=== PATIENT | male | born 1985 | race Hispanic/Latino ===

== ENCOUNTER 2017-10-09 11:04 | Emergency (ER) | payer SELFPAY ==
[2017-10-09 11:06] VITALS: BP 121/69; PULSE 87; RESP 17; TEMP 37.1; O2SAT 98; BMI 24.7
--- NOTE | 2017-10-09 11:13 | ED.VISSUMM ---
- ER Visit Summary Date of Service: 10/09/17 Chief Complaint: Back pain History of Present Illness: The patient is a 32 M who goes to the [facility]. He reports that he has low back pain that began yesterday. Says sharp pain that is 10 out of 10 at worst and 8 out of 10 currently. Is worsened by movement. Son relieved by Tylenol. No radiation to his legs. No numbness or weakness in his legs. No problems with his bowels or his bladder. No groin numbness. He denies any recent trauma. No fall, MVA, or change in activity. Patient reports that he had a subjective fever and went to the urgent care this morning and had a urinalysis and was sent here. He is unsure what the urinalysis showed. He has never had kidney stones. He denies any dysuria or hematuria. Physical Examination: Vitals: Stable. Afebrile. General: A&O x 3. NAD. Cardiovascular exam: Regular rate and rhythm, no murmur, rub or gallop. Respiratory exam: Clear to auscultation bilaterally. No wheezes or stridor. Abdominal exam: Soft, nontender, nondistended, normal bowel sounds. No peritoneal signs. Back: Diffuse moderate tenderness to palpation over the lumbar spine and the paraspinous musculature in the lumbar region. No point tenderness. Negative straight leg bilaterally. 5/5 DF, PF, EHL bilaterally. Normal sensation to light touch throughout. Extremity: No clubbing, cyanosis, or edema. Test Results: UA was negative. Emergency Department Course and Treatment: An OARRS report was obtained which was negative. He was given a shot of Toradol IM and is resting comfortably. Treatment Plan: Patient will be discharged with Correll and naproxen. Instructed to follow-up the [facility] in 3-5 days if not improving. Return to the emergency department for any worsening symptoms. Disposition: To home in improved and stable condition. Impression: 1. Low back pain, acute. This note was generated with [employer] dictation software. It may contain incorrect words, spelling, and punctuation that were not noted in review of the chart prior to signing ED Disposition - Plan for ED Patient: Chief Complaint: Back Instructions: ED Neck Back Pain General Prescriptions: Hydrocodone/Acetaminophen [Correll 5-325 Tablet] 1 - 2 each PO 4X/DAY PRN PRN 3 Days #12 tablet PRN Reason: Pain Naproxen [Naprosyn] 500 mg PO BID #20 tablet [facility]errals: [facility] [Primary Care Provider] - 3-5 Days if not improving Print Language: Austrian
--- NOTE | 2017-10-09 11:20 | ED.DCSUM_ITS ---
- ER Visit Summary Date of Service: 10/09/17 Chief Complaint: Back pain History of Present Illness: The patient is a 32 M who goes to the [facility]. He reports that he has low back pain that began yesterday. Says sharp pain that is 10 out of 10 at worst and 8 out of 10 currently. Is worsened by movement. Son relieved by Tylenol. No radiation to his legs. No numbness or weakness in his legs. No problems with his bowels or his bladder. No groin numbness. He denies any recent trauma. No fall, MVA, or change in activity. Patient reports that he had a subjective fever and went to the urgent care this morning and had a urinalysis and was sent here. He is unsure what the urinalysis showed. He has never had kidney stones. He denies any dysuria or hematuria. Physical Examination: Vitals: Stable. Afebrile. General: A&O x 3. NAD. Cardiovascular exam: Regular rate and rhythm, no murmur, rub or gallop. Respiratory exam: Clear to auscultation bilaterally. No wheezes or stridor. Abdominal exam: Soft, nontender, nondistended, normal bowel sounds. No peritoneal signs. Back: Diffuse moderate tenderness to palpation over the lumbar spine and the paraspinous musculature in the lumbar region. No point tenderness. Negative straight leg bilaterally. 5/5 DF, PF, EHL bilaterally. Normal sensation to light touch throughout. Extremity: No clubbing, cyanosis, or edema. Test Results: UA was negative. Emergency Department Course and Treatment: An OARRS report was obtained which was negative. He was given a shot of Toradol IM and is resting comfortably. Treatment Plan: Patient will be discharged with Hamilton and naproxen. Instructed to follow-up the [facility] in 3-5 days if not improving. Return to the emergency department for any worsening symptoms. Disposition: To home in improved and stable condition. Impression: 1. Low back pain, acute. This note was generated with [employer] dictation software. It may contain incorrect words, spelling, and punctuation that were not noted in review of the chart prior to signing ED Disposition - Plan for ED Patient: Chief Complaint: Back Instructions: ED Neck Back Pain General Prescriptions: Hydrocodone/Acetaminophen [Hamilton 5-325 Tablet] 1 - 2 each PO 4X/DAY PRN PRN 3 Days #12 tablet PRN Reason: Pain Naproxen [Naprosyn] 500 mg PO BID #20 tablet Referrals: [facility] [Primary Care Provider] - 3-5 Days if not improving Print Language: Vietnamese
[2017-10-09] MEDS: Ketorolac 60 MG/2 ML Vial IM (11:29)
[2017-10-09 13:06] LABS: Color, Urine Yellow (Yellow); Glucose, Dipstick Normal (Normal); Ketone-Dipstick 5 mg/dl (Negative); Leukocyte Esterase-Dipstick Negative /ul (Negative); Nitrite-Dipstick Negative (Negative); Occult Blood-Urine Negative /ul (Negative); Protein-Dipstick 30 mg/dl (Negative); Red Blood Cells-Urine 0 SEEN /hpf (0-5); Urine Bilirubin Dipstick Negative (Negative); Urine Clarity Sl. Cloudy (Clear); Urine Urobilinogen Normal (Normal); White Blood Cells 0 SEEN /hpf (0-5)
[2017-10-09 13:22] LABS: Bacteria RARE /hpf (None Seen); Calcium Oxalate Crystals Ur RARE /hpf (<or=2+); Mucous, Urine 1+ /hpf (<or=2+); Squamous Epithelial Cells - UA 0-5 SEEN /hpf (0-5)
[2017-10-09 13:44] VITALS: BP 125/80; PULSE 75; RESP 14; O2SAT 99
== END 2017-10-09 13:49 | disposition home or self-care (01) ==
PROVIDERS: Emergency Provider Emergency Medicine
DX: M54.5 Low back pain (principal); R51 Headache
CPT/HCPCS: 81001; 96372; 99282